=== PATIENT | female | born 1990 | race Caucasian/White ===

== ENCOUNTER 2023-01-04 20:54 | Emergency (ER) | payer SELFPAY ==
--- OUTSIDE RECORDS SUMMARY | 2023-01-04 20:57 | XMS REPORT | Continuity of Care Document ---
:1990 Author Organization [facility] t Address [address] [facility] [address] [place] [id number] Care Team Providers Name Role Phone Unavailable Unavailable Unavailable Payers Payer Name Policy Type Policy Number Effective Date Expiration Date S ource Problems This patient has no known problems. Allergies, Adverse Reactions, Alerts Allergy Allergy Status Severity Reaction(s) Onset Inactive Treating Comm ents Source Name Type Date Date Clinician No Known DA Active [facility] [place] Medications This patient has no known medications. Procedures This patient has no known procedures. Encounters Start End Encounter Admission Attending Care Care Encounter Source Date/Time Date/Time Type Type Clinicians Facility Department ID 2021-07-11 Outpatient [facility] [id number] [place] 19:22:51 [id number] Health Results Test Description Test Time Test Comments Results Result [facility] e Comments FALLOPIAN 2018-12-22 TUBE,STERILIZATION 16:55:00 --------RUN DATE: 12/23/18 [facility] PAGE 1 RUN TIME: 1107 Specimen Inquiry RUN USER: INTERFACE --------PATIENT: MI QUINONES LOC: SHELLI U #: [id number] AGE/SX: 28/F ROOM: [facility] RE12/18/18REG DR: Elia Aguilar III, MD : 90 BED: A DIS: 12/21/18 STATUS: DIS IN TLOC: -------- SPEC #: [id number] RECD: 12/18/18 STATUS: NELSON HERRINGVenkatesh #: [id number] CLIFF: 12/18/18- SUBM DR: Elia Aguilar III, MD ENTERED: 12/21/18 SP TYPE: [facility] YUE DR: ORDERED: LEVEL II SURGIC/2 CODES: [id number] - FALLOPIAN TUBE PROCEDURES: LEVEL II SURGIC (Incomplete) TISSUES: FALLOPIAN TUBE, NOS - BILATERAL FALLOPIAN TUBES CLINICAL HISTORY Not provided (kr) FINAL DIAGNOSIS Specimen #1 right fallopian tube, resection: - benign paratubal cysts - complete lumen demonstrated Specimen #2 left fallopian tube, resection: - complete lumen demonstrated CPT code(s): 46286 x2 cds/wpd 12/22/18 GROSS DESCRIPTION ANATOMIC SOURCE OF TISSUE (per Requisition): Right and Left fallopian tubes (2 containers) Each specimen is labeled with the patient's name and medical record number. Specimen #1 is designated "right fallopian tube" and consists of a 5.0 cm in length and 0.7 cm in diameter fimbriated fallopian tubes. The serosa is pink-purple and hyperemic. The lumen is pinpoint. There is a 0.8 cm clear, serous fluid-filled unremarkable paratubal cyst. Corporate Safety Coordinator sections are submitted labeled A1. Specimen #2 is designated "left fallopian tube" and consists of a 6.0 cm in length and 0.7 cm in diameter fimbriated fallopian tube. The serosa is pink-purple and hyperemic. The lumen is pinpoint. Corporate Safety Coordinator sections are submitted labeled B1. iman/lila 12/21/18 @ `1017 CONTINUED ON NEXT PAGE --------RUN DATE: 12/23/18 [facility] PAGE 2 RUN TIME: 1107 Specimen Inquiry RUN USER: INTERFACE --------SPEC #: [id number] PATIENT: MI QUINONES #[id number] (Continued) -------- Signed Fernando Bocanegra Sammy 12/22/18 1655 -------- END OF REPORT HGB HCT 2018-12-19 07:35:00 Test Item Value Reference Range Interpretation Comme nts HEMOGLOBIN (test code = HGB) 8.5 g/dL 10.7-13.9 L HEMATOCRIT (test code = HCT) 27.4 % 32.1-42.1 L AG HEPATITIS B [id number] 16:55:00 Test Item Value Reference Range Interpretation Comments AG HEPATITIS B SURFACE (test code NONREACTIVE NONREACTIVE = HBSAG) IS CONSENT FORM SIGNED FOR HIV TESTING? YAB HEPATITIS C [id number] 16:55:00 Test Item Value Reference Range Interpretation Comments AB HEPATITIS C (test code = NONREACTIVE NONREACTIVE HCVAB) SIGNAL TO CUTOFF (test code = 0.12 <0.80 N CUTOFF) IS CONSENT FORM SIGNED FOR HIV TESTING? YAB [id number] 16:55:00 Test Item Value Reference Range Interpretation Comments AB TREPONEMA (test code = TREPAB) NONREACTIVE NONREACTIVE IS CONSENT FORM SIGNED FOR HIV TESTING? YAB HIV 1 16:55:00 Test Item Value Reference Range Interpretation Comments AB HIV 1 2 (test NONREACTIVE NONREACTIVE Done by [facility] code = [id number]) 4th Gen HIV Ag/Ab Combo Screen IS CONSENT FORM SIGNED FOR HIV TESTING? YURINALYSIS W/O [id number] 15:47:00 Test Item Value Reference Range Interpretation Comments UA GLUCOSE DIPSTICK (test code = TRACE NEGATIVE A DGLUU) UA KETONE DIPSTICK (test code = NEGATIVE NEGATIVE KETU) UA PROTEIN DIPSTICK (test code = NEGATIVE NEGATIVE PROU) IS NURSE PERFORMING TEST? NCBC W/AUTO [id number] 15:41:00 Test Item Value Reference Range Interpretation Comments WHITE BLOOD CELL (test code = WBC) 12.7 K/mm3 6.6-12.1 H RED BLOOD CELL (test code = RBC) 4.06 M/mm3 3.45-5.01 N HEMOGLOBIN (test code = HGB) 10.1 g/dL 10.7-13.9 L HEMATOCRIT (test code = HCT) 32.2 % 32.1-42.1 N MEAN CELL VOLUME (test code = MCV) 79 fL 84.1-94.8 L MEAN CELL HGB (test code = MCH) 24.9 pg 27-35 L MEAN CELL HGB CONCETRATION (test 31.4 gm/dL 32.2-34.1 L code = MCHC) RED CELL DISTRIBUTION WIDTH (test 14.1 % 12.4-16.5 N code = RDW) PLATELET COUNT (test code = PLT) 282 K/mm3 133-385 N IMMATURE PLATELET FRACTION (test 0.0 % 0.0-10.8 N code = IPF) MEAN PLATELET VOLUME (test code = 11.1 fl 9.1-12.7 N MPV) NEUTROPHIL % (test code = NT%) 75.6 % 56.5-79.4 N LYMPHOCYTE % (test code = LY%) 15.5 % 14.3-34.3 N MONOCYTE % (test code = MO%) 7.7 % 5.1-10.4 N EOSINOPHIL % (test code = EO%) 0.6 % 0.1-3.0 N BASOPHIL % (test code = BA%) 0.2 % 0.1-1.0 N NEUTROPHIL # (test code = NT#) 9.6 K/mm3 LYMPHOCYTE # (test code = LY#) 2.0 K/mm3 MONOCYTE # (test code = MO#) 1.0 K/mm3 EOSINOPHIL # (test code = EO#) 0.08 K/mm3 BASOPHIL # (test code = BA#) 0.0 K/mm3 RBC MORPHOLOGY REQUIRED (test code NORMAL NORMAL = RBCM) PLATELET MORPHOLOGY REQUIRED (test NORMAL NORMAL code = PLTMR) - US PREG AFTER [id number] 16:00:00 Patient Name: MI QUINONES Unit No: [id number] EXAMS: CPT CODE: [id number] US PREG AFTER [address] [facility] [address] [place], [place] [address] OBSTETRICAL ULTRASOUND REPORT Pat. Name: MI QUINONES Pat. No: [id number] Study Date: 08/13/2018 1:44pm , Age: 02 1990, 28 Pregnancies: 2, Para 1 LMP: 03/20/2018 GA by LMP: 20w6d GA by US: 20w4d GA Selected: 20w6d (LMP) MATHEW: 12/25/2018 Referring MD: ELIA SHAH Assembler Final: Zaina Jacome RDMS, T CPT4: [id number] Admitting MD: ELIA AGUILAR Hist/Ind: SCAN 1 ANATOMY MEASUREMENTS AGE GROWTH EVALUATION Measurement GA Range Srce %for GA Ratios ----- ---- ------- BPD 4.8 cm 20w4d (26s1y-33r4p) Hadl BPD 38% FL/BPD 0.71 HC 18.6 cm 20w6d (19w1d- 22w3d) Hadl HC 47% FL/AC 0.21 APD 5.2 cm APD HC/AC 1.14 (1.06 - 1.24) TAD 5.2 cm TAD CI 0.75 (0.70 - 0.86) AC 16.3 cm 21w1d (49r9p-80r9f) Hadl AC 55% FL 3.4 cm 20w2d (02i3a-74t4y) Hadl FL 37% HL 3.2 cm 20w5d (29h7v-29j1b) José HL 47% GA for sonogram 20w4d (62i5g-50w1h) Weight Estimate: based on (BPD,HC,AC,FL) Hadlock Weight: 394 gm (337-452) Hadlock : 0lbs, 13oz Cervical Length: 3.6 cm Heart Rate: 137 bpm MATERNAL ANATOMY Ovaries LxHxW (cm) Right 2.4 x 1.3 x 1.7 Vol: 2.8cc Left 2.3 x 1.3 x 1.3 Vol: 2.0cc CLINICAL SUMMARY Type of Gestation: [place] Intrauterine in variable presentation. size is appropriate for gestational age. motion and organs seen: Fetalheart motion seen body and limb movements seen Four chamber heart observed Left ventricular outflow tract (LVOT) seen Right ventricular outflow tract (RVOT) seen [facility] NAME[facility] Radiology Department PHYS: Elia Cortes III, MD [address] : 1990 AGE: 28 SEX: F [place] [id number] LOC: F.RAD PHONE #: [phone] EXAMDATE: 08/13/2018 STATUS: REG CLI FAX #: [phone] RAD NO: Page 1 Signed Report (CONTINUED) Patient Name: MI QUINONES Unit No: [id number] EXAMS: CPT CODE: [id number] US PREG AFTER 1ST TRI 41690 (Continued) Regular cardiac rhythm observed Normal intracranial anatomy seen Umbilical cord insertion in fetus seen stomach, Renal Fossa, Bladder and Spine seen Three vessel umbilical cord noted abnormalities observed: Bilateral renal pelviectasis 4 mm mild non specific prominence of the gallbladder Placental location: Posterior Placental maturity : Grade 1 There is no evidence of placenta previa. Amniotic fluid volume is normal. Uterus and adnexa: No significant abnormality is seen. Jojo Patel M.D. Electronic Signature 08/13/2018 04:00pm Electronically Signedby Jojo Perry MD on 08/13/2018 at 1600 Reported and signed by: Jojo Perry MD CC: Elia Aguilar III, MD Technologist: Zaina Jacome RDMS, RVT Probe: Trnscrbd D/ (1600) Mahamed Orig Print D/T: S: 08/13/2018 (1600) [facility] NAME[facility] Radiology Department PHYS: Elia Crotes III, MD [address] : 1990 AGE: 28 SEX: [place] [id number] LOC: F.RAD PHONE #: [phone] EXAM DATE: 08/13/2018 STATUS: REG CLI FAX #: [phone] RAD NO: Page 2 Signed Report Patient Name: MI QUINONES Unit No: [id number] EXAMS: CPTCODE: [id number] US PREG AFTER 1ST TRI 18321 (Continued) [facility] NAME: MI QUINONES Radiology Department PHYS: Elia Cortes III, MD [address] : 1990 AGE: 28 SEX: F [place], [place] [address] LOC: JsRAD PHONE #: [phone] EXAM DATE: 08/13/2018STATUS: REG CLI FAX #: [phone] RAD NO: Page 3 Signed Report
[2023-01-04 22:35] LABS: Absolute Lymphocytes (CBC) 1.3 K/uL (0.7-4.9); Hematocrit 32.8 % (36.0-45.0); Lymphocytes % 18.8 % (15.3-44.8); MCV 75.9 fL (80-100); Platelets 322 thou/uL (152-406); RBC Red Blood Cell Count 4.32 M/uL (3.86-4.86)
[2023-01-04] MEDS ORDERED: cloNIDine HCL 0.1 MG TAB ONE (22:44)
[2023-01-04 22:45] LABS: Specific Gravity 1.007 (1.005-1.030); Urine Bacteria <20 /HPF (<20); Urine Bilirubin NEGATIVE (Negative); Urine Blood Negative (Negative); Urine Clarity Turbid (Clear); Urine Color Colorless (Yellow); Urine Glucose NEGATIVE (Negative); Urine Mucus Slight /HPF (None Seen); Urine Protein NEGATIVE (Negative); Urine RBC <5 /HPF (None Seen); Urine Urobilinogen Normal (Normal)
[2023-01-04 22:53] LABS: Albumin 3.9 g/dL (3.4-5.0); Bilirubin Total 0.3 mg/dL (0.2-1.0); Potassium 3.6 mEq/L (3.5-5.1); Protein, Total 7.9 g/dL (6.4-8.2)
--- NOTE | 2023-01-04 23:14 | ER ---
Nurse's Notes [facility] Name: Madiha Park Age: 32 yrs Sex: Female : 1990 Arrival Date: 01/04/2023 Time: 20:54 Bed 18 Private MD: Diagnosis: Other cholelithiasis without obstruction Presentation: 01/04 21:09 Chief complaint: Patient states: circumferential epigastric pain off and on since May kl reports worse recently seen at urgent care reports negative CT no improvement of pain did show ovarian cyst pt denies lower abdominal pain. Coronavirus screen: Vaccine status: Patient reports receiving the 2nd dose of the covid vaccine. Ebola Screen: Patient negative for fever greater than or equal to 101.5 degrees Fahrenheit, and additional compatible Ebola Virus Disease symptoms. Initial Sepsis Screen: Does the patient meet any 2 criteria? No. Patient's initial sepsis screen is negative. Does the patient have a suspected source of infection? No. Patient's initial sepsis screen is negative. Risk Assessment: Do you want to hurt yourself or someone else? Patient reports no desire to harm self or others. 21:09 Method Of Arrival: Ambulatory kl 21:09 Acuity: ANITRA 3 kl Triage Assessment: 21:12 General: Appears uncomfortable, Behavior is calm, cooperative. Pain: Complains of pain kl in right upper quadrant and left upper quadrant Historical: - Allergies: 21:12 No Known Allergies; kl - PMHx: 21:12 Hypertensive disorder; kl - PSHx: 21:12 section; kl - Immunization history:: Adult Immunizations up to date. - Social history:: Smoking status: Patient denies any tobacco usage or history of. Screenin:[facility] ED Fall Risk Assessment (Adult) History of falling in the last 3 months, jb4 including since admission No falls in past 3 months (0 pts) Confusion or Disorientation No (0 pts) Score/Fall Risk Level 0 - 2 = Low Risk Oriented to surroundings, Maintained a safe environment. Abuse screen: Denies threats or abuse. Nutritional screening: No deficits noted. Tuberculosis screening: No symptoms or risk factors identified. Assessment: 21:05 General: Appears in no apparent distress. uncomfortable, Behavior is calm, cooperative, jb4 appropriate for age. Pain: Complains of pain in right upper quadrant Pain does not radiate. Pain currently is 7 out of 10 on a pain scale. Neuro: Level of Consciousness is awake, alert, obeys commands, Oriented to person, place, time, situation. Cardiovascular: Patient's skin is warm and dry. Respiratory: Airway is patent Respiratory effort is even, unlabored, Respiratory pattern is regular, symmetrical. GI: Abdomen is flat, non-distended. : No signs and/or symptoms were reported regarding the genitourinary system. EENT: No signs and/or symptoms were reported regarding the EENT system. Derm: Skin is intact, Skin is pink, warm \T\ dry. Musculoskeletal: Circulation, motion, and sensation intact. Range of motion: intact in all extremities. 21:35 Reassessment: Patient appears in no apparent distress at this time. Patient and/or jb4 family updated on plan of care and expected duration. Pain level reassessed. Patient is alert, oriented x 3, equal unlabored respirations, skin warm/dry/pink. 22:30 Reassessment: Patient appears in no apparent distress at this time. Patient and/or jb4 family updated on plan of care and expected duration. Pain level reassessed. Patient is alert, oriented x 3, equal unlabored respirations, skin warm/dry/pink. 23:34 Reassessment: Patient appears in no apparent distress at this time. Patient and/or jb4 family updated on plan of care and expected duration. Pain level reassessed. Patient is alert, oriented x 3, equal unlabored respirations, skin warm/dry/pink. Vital Signs: 21:09 BP 192 / 122; Pulse 80; Resp 18; Temp 98.2; Pulse Ox 99% ; Weight 68 kg; Height 5 ft. 7 in. ; Pain 7/10; 21:35 BP 171 / 114; Pulse 77; Resp 16; Pulse Ox 100% on R/A; jb4 23:34 BP 142 / 105; Pulse 74; Resp 16; Pulse Ox 98% on R/A; jb4 21:09 Body Mass Index 23.48 (68.00 kg, 170.18 cm) 21:09 Pain Scale: Adult ED Course: 21:02 Patient arrived in ED. jj6 21:12 Triage completed. 21:34 Porfirio Cloud, RN is Primary Nurse. jb4 21:36 Patient has correct armband on for positive identification. Bed in low position. Call jb4 light in reach. Side rails up X 1. 21:36 No provider procedures requiring assistance completed. jb4 21:37 Katarzyna Martel [facility]C [facility]. sb4 21:37 Carolina Cameron MD is Attending Physician. sb4 22:10 Urine collected: clean catch specimen, clear. Inserted saline lock: 20 gauge in right wm antecubital area, using aseptic technique. Blood collected. UAM Sent, CBC with Diff, CMP, Lipase Sent. 22:36 US Abdomen Limited In Process Unspecified. EDMS 23:13 Kojo Kate MD is Referral Physician. sb4 23:13 Porfirio Taveras MD is Referral Physician. sb4 23:13 Francisco Javier Connelly MD is Referral Physician. sb4 23:34 IV discontinued, intact, bleeding controlled, No redness/swelling at site. Pressure jb4 dressing applied. Administered Medications: 22:33 Drug: cloNIDine PO 0.2 mg PO once Route: PO; jb4 23:34 Drug: Hydrocodone-Acetaminophen PO (7.5 mg-325 mg) 1 tabs PO once Route: PO; jb4 Outcome: 23:13 Discharge ordered by MD. sb4 23:34 Discharged to home ambulatory, jb4 23:34 Condition: stable 23:34 Discharge instructions given to patient, Instructed on discharge instructions, follow up and referral plans. medication usage, Demonstrated understanding of instructions, follow-up care, medications, Prescriptions given X 1, 23:35 Patient left the ED. jb4 Signatures: Dispatcher [employer] EDUT Shonna Mcintosh RN RN kl Bryson, James, RN RN jb4 Marsh, Wendy Denia Ratliff jj6 Katarzyna Martel PA-C PA-C sb4 Corrections: (The following items were deleted from the chart) : 22:29 Inserted saline lock: 20 gauge in right antecubital area, using aseptic technique. Blood collected. : 22:29 Urine collected: clean catch specimen, clear, [facility] 22:31 22:29 Urinalysis W/Microscopic+U.LAB.BRZ drawn and sent. [facility] 22:31 22:30 CBC+H.LAB.BRZ drawn and sent. [facility] :31 22:30 COMPREHENSIVE METABOLIC PANEL+C.LAB.BRZ drawn and sent. [facility] 22:31 22:30 LIPASE+C.BETH drawn and sent. [facility]
--- NOTE | 2023-01-04 23:14 | EDPHYS ---
Physician Documentation [facility] Name: Madiha Park Age: 32 yrs Sex: Female : 1990 Arrival Date: 01/04/2023 Time: 20:54 Bed 18 Private MD: ED Physician Carolina Cameron HPI: 01/04 22:28 This 32 yrs old Female presents to ER via Ambulatory with complaints of epigastric pain.sb4 22:28 The patient presents with abdominal pain in the epigastric area. Onset: The sb4 symptoms/episode began/occurred 7 month(s) ago. The symptoms radiate to back and right upper quadrant. Associated signs and symptoms: Pertinent positives: nausea, Pertinent negatives: diarrhea, vomiting. The symptoms are described as sharp. Modifying factors: The symptoms are alleviated by nothing, the symptoms are aggravated by. The patient has been recently seen at an urgent care, this week, for similar complaints. Historical: - Allergies: 21:12 No Known Allergies; kl - PMHx: 21:12 Hypertensive disorder; kl - PSHx: 21:12 section; kl - Immunization history:: Adult Immunizations up to date. - Social history:: Smoking status: Patient denies any tobacco usage or history of. ROS: 22:33 Constitutional: Negative for fever, chills, and weight loss, sb4 22:33 Abdomen/GI: Positive for abdominal pain, nausea, 22:33 All other systems are negative, Exam: 22:33 Constitutional: This is a well developed, well nourished patient who is awake, alert, sb4 and in no acute distress. 22:33 Head/Face: Normocephalic, atraumatic. Eyes: Extra-ocular motions intact. Periorbital areas with no swelling, redness, or edema. ENT: Mucous membranes moist. Cardiovascular: Regular rate and rhythm with a normal S1 and S2. Respiratory: Lungs have equal breath sounds bilaterally, clear to auscultation and percussion. No rales, rhonchi or wheezes noted. No increased work of breathing, no retractions or nasal flaring. Abdomen/GI: Soft, non-tender, no distension. Skin: Warm, dry with normal turgor. Normal color with no rashes, no lesions, and no evidence of cellulitis. MS/ Extremity: Pulses equal, no cyanosis. Neurovascular intact. Full, normal range of motion. Vital Signs: 21:09 BP 192 / 122; Pulse 80; Resp 18; Temp 98.2; Pulse Ox 99% ; Weight 68 kg; Height 5 ft. 7 kl in. ; Pain 7/10; 21:35 BP 171 / 114; Pulse 77; Resp 16; Pulse Ox 100% on R/A; jb4 23:34 BP 142 / 105; Pulse 74; Resp 16; Pulse Ox 98% on R/A; jb4 21:09 Body Mass Index 23.48 (68.00 kg, 170.18 cm) kl 21:09 Pain Scale: Adult kl MDM: 21:37 Patient medically screened. sb4 22:33 Differential diagnosis: cholecystitis, Cholelithiasis, gastritis, gastroesophageal sb4 reflux disease, non-specific abd pain, pancreatitis, Peptic Ulcer Disease. 23:23 Data reviewed: vital signs, nurses notes, lab test result(s), radiologic studies, and sb4 as a result, I will discharge patient. Test considered but Not performed: CT: had negative CT 2 days ago. Historians other than the Patient: Spouse/Significant Other: boyfriend. Care significantly affected by the following chronic conditions: Hypertension. Counseling: I had a detailed discussion with the patient and/or guardian regarding the historical points, exam findings, and any diagnostic results supporting the discharge/admit diagnosis, the presence of at least one elevated blood pressure reading (>120/80) during this emergency department visit, lab results, radiology results, the need for outpatient follow up, a general surgeon, to return to the emergency department if symptoms worsen or persist or if there are any questions or concerns that arise at home. 01/04 21:50 Order name: CBC with Diff; Complete Time: 22:39 sb4 01/04 21:50 Order name: CMP; Complete Time: 22:54 sb4 01/04 21:50 Order name: Lipase; Complete Time: 22:54 sb4 01/04 21:50 Order name: UAM; Complete Time: 22:54 sb4 01/04 21:50 Order name: US Abdomen Limited sb4 01/04 21:50 Order name: IV Saline Lock; Complete Time: 22:30 sb4 01/04 21:50 Order name: Labs collected and sent; Complete Time: 22:30 sb4 Administered Medications: 22:33 Drug: cloNIDine PO 0.2 mg PO once Route: PO; jb4 23:34 Drug: Hydrocodone-Acetaminophen PO (7.5 mg-325 mg) 1 tabs PO once Route: PO; jb4 Disposition: 23:47 Co-signature as Attending Physician, Carolina Cameron MD I agree with the assessment sd2 and plan of care. Patient care plan and management was discussed with me. . Disposition Summary: 01/04/23 23:13 Discharge Ordered Notes: Location: Home sb4 Problem: an ongoing problem sb4 Symptoms: are unchanged sb4 Condition: Stable sb4 Diagnosis - Other cholelithiasis without obstruction sb4 Followup: sb4 - With: Kojo Kate MD - When: As needed - Reason: Recheck today's complaints, Re-evaluation by your physician Followup: sb4 - With: Porfirio Taveras MD - When: As needed - Reason: Recheck today's complaints, Re-evaluation by your physician Followup: sb4 - With: Francisco Javier Connelly MD - When: As needed - Reason: Recheck today's complaints, Re-evaluation by your physician Discharge Instructions: - Discharge Summary Sheet sb4 - Cholelithiasis sb4 Forms: - Medication Reconciliation Form sb4 - Thank You Letter sb4 - Antibiotic Education sb4 - Prescription Opioid Use sb4 - Patient Portal Instructions sb4 - Leadership Thank You Letter sb4 Prescriptions: - Tramadol 50 mg Oral Tablet - take 1 tablet ORAL route every 8 hours as needed; 12 tablet; Refills: 0, sb4 Product Selection Permitted Signatures: Dispatcher [employer] Shonna Jasso RN RN kl Bryson, James, RN RN jb4 Dunlop, Stephanie, MD MD sd2 Katarzyna Martel PA-C PA-C sb4 Corrections: (The following items were deleted from the chart) 22:35 21:55 Abdomen Exam Limited ordered. EDDC YOANA
[2023-01-04 23:45] VITALS: TEMP 98.2
[2023-01-04] MEDS ORDERED: HYDROCODONE/APAP 7.5/325 MG TAB ONE (23:46)
[2023-01-04 23:56] VITALS: BP 142/105; O2SAT 98
--- NOTE | 2023-01-06 10:14 | RAD REPORT ---
EXAM DESCRIPTION: US - Abdomen Exam Limited - 01/04/2023 10:34 pm CLINICAL HISTORY: ABD PAIN TECHNIQUE: Real-time ultrasound of the right upper quadrant with image documentation. COMPARISON: No relevant prior studies available. FINDINGS: Gallbladder: Small gallstone. No gallbladder wall thickening or pericholecystic fluid. Common bile duct: Unremarkable as visualized. No stones. No dilation. IMPRESSION: Cholelithiasis without secondary signs to suggest acute cholecystitis. Electronically signed by: Jones Harper MD 01/04/2023 10:55 PM CDT Due to temporary technical issues with the PACS/Fluency reporting system, reports are being signed by the in house radiologist without review as a courtesy to ensure prompt reporting. The interpreting r adiologist is fully responsible for the content of the report.
== END 2023-01-04 23:35 | disposition home or self-care (01) ==
LOC: ER 20:54
DX: K80.80 Other cholelithiasis without obstruction (principal); I10 Essential (primary) hypertension
CPT/HCPCS: 36415; 76705; 80053; 81001; 83690; 85025; 99284

== ENCOUNTER 2023-01-23 11:12 | Day surgery (SDC) | payer BC, SELFPAY ==
--- NOTE | 2023-01-22 11:55 | EKG ---
Test Date: 2023-01-22 Test Time: 11:24:09 [place] Waitress/Waiter: ALEX MEASUREMENT RESULTS: Intervals: Rate: 61 MT: 112 QRSD: 82 QT: 408 QTc: 410 [place]: P: 41 MT: 112 QRS: 43 T: 30 INTERPRETIVE STATEMENTS: Normal sinus rhythm Normal ECG No previous ECG available for comparison Electronically Signed On 01-22-23 11:55:00 CDT by Wilber Kirk
[2023-01-22 12:16] LABS: Specific Gravity 1.006 (1.005-1.030)
[2023-01-23] MEDS ORDERED: CEFOXITIN SODIUM 2 GM/VIAL ONE (11:42)
[2023-01-23] MEDS ORDERED: Ringers Lactate 1,000 ML IV ONE (11:42)
[2023-01-23] MEDS ORDERED: BUPIVACAINE 0.25% PF 30 ML VIAL ONE (12:23)
[2023-01-23] MEDS ORDERED: FENTANYL CITR 100 MCG/2 ML ONE (12:45)
[2023-01-23] MEDS ORDERED: propofoL 200 MG/20 ML VIAL IV ONE (12:46)
[2023-01-23] MEDS ORDERED: ROCURONIUM 50 MG/5 ML VIAL IV ONE (12:46)
[2023-01-23] MEDS ORDERED: LIDOCAINE 2% MPF 5 ML VIAL ONE (12:46)
[2023-01-23] MEDS ORDERED: MIDAZOLAM HCL 2 MG/2 ML INJ ONE (12:46)
[2023-01-23] MEDS ORDERED: ONDANSETRON 4 MG/2 ML VIAL ONE ×2 (12:46→15:20)
[2023-01-23] MEDS ORDERED: KETOROLAC 30 MG/ML INJ ONE (13:07)
[2023-01-23] MEDS ORDERED: dexAMETHasone 4 MG/ML VIAL ONE (13:07)
--- NOTE | 2023-01-23 13:57 | P.OP ---
Preoperative diagnosis: Cholecystitis with Cholelithiasis Postoperative diagnosis: Cholecystitis with Cholelithiasis Primary procedure: Laparoscopic Cholecystectomy with ICG Cholangiography Anesthesia: GETA + Local Estimated blood loss: <5cc Specimen: Gallbladder Findings: Significant inflammation with edema Transferred to: Recovery Room Condition: Good
[2023-01-23] MEDS ORDERED: GLYCOPYRROLATE 0.2 MG/ML SYR ONE (14:11)
[2023-01-23] MEDS ORDERED: NEOSTIGMINE 1 MG/ML -10 ML VIAL ONE (14:11)
[2023-01-23] MEDS: HYDROMORPHONE HCL 1 MG/ML INJ ONE ×2 (14:45→14:50)
[2023-01-23] MEDS ORDERED: HYDROCODONE/APAP 7.5/325 MG TAB ONE (15:47)
[2023-01-23 16:35] VITALS: BP 125/90; TEMP 97.5; O2SAT 97
--- NOTE | 2023-01-23 20:52 | OP ---
Date of Procedure: 01/23/2023 Surgeon: Francisco Javier Connelly MD, Preoperative Diagnoses: Cholecystitis, cholelithiasis. Postoperative Diagnosis: Cholecystitis, cholelithiasis. Procedure Performed: Laparoscopic cholecystectomy with indocyanine green cholangiography. Anesthesia: General endotracheal plus local with 0.25% Marcaine. Estimated Blood Loss: Less than 5 cc. Specimen: Gallbladder. Findings: Significant inflammation and edema in the portal area extending all the way up the gallbla dder. Patient transferred to recovery room in good condition. Procedure In Detail: After informed consent was obtained, patient was brought to the operating room, prepped and draped in the usual sterile fashion after adequate anesthesia was achieved. I anestheti zed region of the supraumbilical position down through subcutaneous tissues. I then placed 5 mm opti rex trocar in the abdomen without evidence of complication. Insufflation was obtained at 15 mmHg at this time. There was no injury to vital structures upon entry into the abdomen. Two additional troc ars were placed, one in the epigastrium and one in the right upper quadrant. Both of them similarly anesthetized and sharply incised. A 5 mm trocar was placed under direct visualization without eviden ce of complication. I then upsized the umbilical trocar to 12 mm under direct visualization without evidence of complication. The patient was positioned head up right-side up position. Ratcheted gras per was used to grasp the patient's gallbladder due to significant inflammatory changes extending fro m the midportion of the gallbladder all the way down to the Mattie's area and into the triangle of Calot with significant inflammatory changes and edematous changes. The gallbladder also had a partia lly intrahepatic component near the fundus of the gallbladder. I proceeded by taking down the inflam matory changes in the omental attachments to the anterior surface of the gallbladder to expose the ga llbladder wall. At this point, I dissected down the Mattie pouch of the gallbladder exposing 2 str uctures and identified both the cystic duct and cystic artery and the critical view of safety was obt ained at this point. Indocyanine green cholangiography identified the cystic duct, common duct junct ion and found it to be at a safe distance from the cystic duct, common duct junction at the junction of the gallbladder. Additionally, you could see the intra and extrahepatic portions of the common du ct to the right and left hepatic ducts with indocyanine green cholangiography. At this point, the 2 skeletonized structures which were previously identified as the cystic duct and cystic artery had david ble titanium clips placed, I should say, on the proximal side and singly on the distal side of both t he cystic duct and cystic artery. These structures were then ligated using Endo Ortega without evide nce of complication. No hemostatic measures were required. No spillage of bile was appreciated thro ughout the procedure. The gallbladder was then removed from the hepatic fossa without evidence of co mplication, placed in EndoCatch bag, removed through the umbilical trocar, and sent off for pathologi c examination. The area was copiously irrigated multiple times until completely clear. Indocyanine green cholangiography once again confirmed there was no leakage of bile from the hepatic fossa, and a t this point, the abdomen was copiously irrigated and suctioned out completely dry. The patient was positioned back in neutral position. Remaining effluent was suctioned out. The umbilical trocar sit e was then closed using a Dk-Evan suture passer with 0 Vicryl in an interrupted fashion with good approximation of tissues. The abdomen was then completely desufflated under direct vision witho ut evidence of complication. Remainder of trocars were removed. All skin edges were then copiously irrigated and closed with a 4-0 Monocryl in running fashion. Dermabond was placed over top. Patient tolerated the procedure well without evidence of complication and transferred to PACU in good condit ion. All counts were correct at the end of the case. CONSTANTINE/JUAN Voice ID: [id number] Report ID: [id number]
== END 2023-01-23 16:25 | disposition home or self-care (01) ==
LOC: OR 11:12
PROVIDERS: ATTEND Surgery
PROC: BF50200 Other Imaging of Bile Ducts using Fluorescing Agent, Indocyanine Green Dye, Intraoperative (ICD-10-PCS; 2023-01-23)
PROC: 0FT44ZZ Resection of Gallbladder, Percutaneous Endoscopic Approach (ICD-10-PCS; principal; 2023-01-23 13:00)
DX: K80.10 Calculus of gallbladder with chronic cholecystitis without obstruction (principal); I10 Essential (primary) hypertension; R10.11 Right upper quadrant pain
CPT/HCPCS: 93005; 81025; 88304; 47563; J2704; J1100; J2710; J2001; J2250; J3010; J1170; J0694; J2405 ×2; J7120